=== PATIENT | male | born 2005 | race African-American/Black ===

== ENCOUNTER 2025-04-12 12:38 | Emergency (ER) | payer OTHER ==
[~2025-04-12] VITALS: Ht 182.9 cm; Wt 86.2 kg
[2025-04-12 12:48] VITALS: O2SAT 100
[2025-04-12] MEDS: FLUORESCEIN SODIUM 1MG/STRIP LEFTEYE ONE (15:30)
[2025-04-12] MEDS: TETRACAINE 0.5% OPHTH DROPS 4ML BOTHEYE ONE (15:30)
[2025-04-12] MEDS ORDERED: TRIMO LEFTEYE (17:30)
[2025-04-12] MEDS ORDERED: NAPR-681 MT (17:30)
[2025-04-12 18:01] VITALS: BP 120/82; PULSE 87; RESP 16; TEMP 36.8; O2SAT 100
== END 2025-04-12 18:02 | disposition home or self-care (01) ==
LOC: ER 12:38
DX: S00.12XA Contusion of left eyelid and periocular area, initial encounter (principal); H11.32 Conjunctival hemorrhage, left eye; I10 Essential (primary) hypertension; Y04.0XXA Assault by unarmed brawl or fight, initial encounter; Y93.89 Activity, other specified; Y92.89 Other specified places as the place of occurrence of the external cause; Y99.8 Other external cause status
CPT/HCPCS: 99283